=== PATIENT | male | born 1980 | race Caucasian/White ===

== ENCOUNTER 2017-02-10 09:31 | Emergency (ER) | payer MEDICAID ==
[~2017-02-10] VITALS: Ht 188 cm; Wt 73.6 kg
[2017-02-10 09:34] VITALS: BP 128/72
[2017-02-10] MEDS ORDERED: LIDOCAINE 1% 500 MG/50 ML VIAL INJ ONE (10:10)
--- NOTE | 2017-02-10 10:17 | NUR ---
PATIENT PRESENTS TO ED WITH BACK PAIN X 5 DAYS. PT ACCOMPANIED BY . PT DENIES N/V/D; SKIN IS PINK/WARM/DRY; AAOX4 WITH EVEN AND STEADY GAIT; LUNGS CLEAR BL; HR EVEN AND REGULAR; PT DENIES ANY FEVER, CP, SOB, OR COUGH AT THIS TIME; PATIENT STATES PAIN OF 7/10 AT THIS TIME; VSS; PATIENT POSITIONED FOR COMFORT; HOB ELEVATED; BEDRAILS UP X2; BED DOWN. ER MD MADE AWARE OF PT STATUS.
--- NOTE | 2017-02-10 10:58 | NUR ---
DR. RED PRESENT AT BEDSIDE FOR I AND D
--- NOTE | 2017-02-10 11:08 | NUR ---
I AND D COMPLETE, PT TOLERATED WELL. COVERED WITH DRESSING.
[2017-02-10 11:20] VITALS: BP 117/74
--- NOTE | 2017-02-10 11:20 | NUR ---
Patient discharged with v/s stable.ACCOMPANIED BY SPOUSE Written and verbal after care instructions given and explained. Patient verbalized understanding. Ambulatory with steady gait. All questions addressed prior to discharge. Advised to follow up with PMD FOR WOUND CHECKED WITHIN 2 DAYS.
== END 2017-02-10 11:20 | disposition home or self-care (01) ==
LOC: MED 09:31
DX: L02.212 Cutaneous abscess of back [any part, except buttock and flank] (principal)
CPT/HCPCS: 10060; 90471; 90715; 99283; J2001

== ENCOUNTER 2017-02-13 11:08 | Emergency (ER) | payer MEDICAID ==
[~2017-02-13] VITALS: Ht 190.5 cm; Wt 73.7 kg
[2017-02-13 11:49] VITALS: BP 133/67
--- NOTE | 2017-02-13 12:00 | NUR ---
PATIENT PRESENTS TO ED WITH A WOUND CHECK--ABSCESS DRAINED 3 DAYS AGO . PT STATES . DENIES N/V/D; SKIN IS PINK/WARM/DRY; AAOX4 WITH EVEN AND STEADY GAIT; LUNGS CLEAR BL; HR EVEN AND REGULAR; PT DENIES ANY FEVER, CP, SOB, OR COUGH AT THIS TIME; PATIENT STATES PAIN OF 0/10 AT THIS TIME; VSS; PATIENT POSITIONED FOR COMFORT; HOB ELEVATED; BEDRAILS UP X2; BED DOWN. ER MD MADE AWARE OF PT STATUS.
--- NOTE | 2017-02-13 12:17 | NUR ---
MD WILL BE REPACK WOUND ---SUPPLIES AT BEDSIDE, NOTIFIED
--- NOTE | 2017-02-13 12:45 | NUR ---
WOUND PACKED, PIG TAIL LEFT OUT----CLEAN GAUZE DRESSING APPLIED---PT TOLERATED PROCEDURE WITH MINIMAL DISCOMFORT STATED BY PT
[2017-02-13 12:55] VITALS: BP 114/71
== END 2017-02-13 12:55 | disposition home or self-care (01) ==
LOC: MED 11:08
DX: Z48.01 Encounter for change or removal of surgical wound dressing (principal)
CPT/HCPCS: 99283

== ENCOUNTER 2021-04-15 16:15 | Emergency (ER) | payer MEDICAID ==
[~2021-04-15] VITALS: Ht 190.5 cm; Wt 77.1 kg
[2021-04-15 16:19] VITALS: BP 125/68
--- NOTE | 2021-04-15 16:30 | NUR ---
[facility] [place] BEDSIDE EVALUATING PT
--- NOTE | 2021-04-15 16:32 | NUR ---
40 Y MALE WITH C/O LIPOMA ON RIGHT UPPER BACK X 2 WEEKS. PT STATED PAIN STARTED TO OCCUR X2 DAYS AGO THAT IS NON-RADIATING. PMH: LIPOMA RIGHT UPPER BACK SURGERY 4 YEARS AGO. [place]
[2021-04-15] MEDS ORDERED: LIDOCAINE MPF 1% 10 MG/ML VIAL INJ ONE (16:50)
[2021-04-15] MEDS ORDERED: IBUPROFEN 600 MG TAB PO ONE (16:50)
--- NOTE | 2021-04-15 17:10 | NUR ---
I&D SET UP PLACED INTO PT ROOM FOR PA.
[2021-04-15] MEDS ORDERED: IBUP-2213 PO (17:34)
[2021-04-15] MEDS ORDERED: CEPH-588 PO (17:34)
[2021-04-15 17:42] VITALS: BP 125/68
--- NOTE | 2021-04-15 17:42 | NUR ---
Patient discharged with v/s stable. Written and verbal after care instructions given and explained. Patient alert, oriented and verbalized understanding of instructions. Ambulatory with steady gait. All questions addressed prior to discharge. ID band removed. Patient advised to follow up with PMD. Rx of KEFLEX, MOTRIN given. Patient educated on indication of medication including possible reaction and side effects. Opportunity to ask questions provided and answered.
== END 2021-04-15 17:42 | disposition home or self-care (01) ==
LOC: MED 16:15
DX: L72.3 Sebaceous cyst (principal); R03.0 Elevated blood-pressure reading, without diagnosis of hypertension; Z79.899 Other long term (current) drug therapy; Z98.890 Other specified postprocedural states
CPT/HCPCS: 10060; 99283; J2001

== ENCOUNTER 2021-04-18 12:25 | Emergency (ER) | payer MEDICAID ==
[~2021-04-18] VITALS: Ht 190.5 cm; Wt 83.0 kg
[~2021-04-18 12:25] MED LIST: CEPH-588 PO; IBUP-2213 PO
[2021-04-18 12:35] VITALS: BP 122/75
--- NOTE | 2021-04-18 12:39 | NUR ---
Patient to wait in lobby.
[2021-04-18 13:48] VITALS: BP 122/75
--- NOTE | 2021-04-18 13:48 | NUR ---
Patient discharged with v/s stable. Written and verbal after care instructions given and explained. Patient verbalized understanding. Ambulatory with steady gait TO CAR WITH SPOUSE. All questions addressed prior to discharge. Advised to follow up with PMD.
== END 2021-04-18 13:48 | disposition home or self-care (01) ==
LOC: MED 12:25
DX: L02.212 Cutaneous abscess of back [any part, except buttock and flank] (principal); Z48.00 Encounter for change or removal of nonsurgical wound dressing
CPT/HCPCS: 99282

== ENCOUNTER 2021-04-22 17:04 | Emergency (ER) | payer MEDICAID ==
[~2021-04-22] VITALS: Ht 188 cm; Wt 84.4 kg
[2021-04-22 17:04] VITALS: BP 123/77
--- NOTE | 2021-04-22 17:13 | NUR ---
Patient to chair Diaz
--- NOTE | 2021-04-22 17:15 | NUR ---
BIB SELF FOR WOUND CHECK. S/P I&D ON UPPER BACK. 0/10 PAIN.
--- NOTE | 2021-04-22 17:36 | NUR ---
Patient being evaluated by DR SEVERINO at TRIAGE ROOM.
[2021-04-22] MEDS ORDERED: BACITRACIN OINT 500 UNITS/GM PKT TP ONE ×2 (17:38→17:40)
--- NOTE | 2021-04-22 17:52 | NUR ---
Patient discharged with v/s stable. Written and verbal after care instructions given and explained. Patient verbalized understanding. Ambulatory with steady gait. All questions addressed prior to discharge. Advised to follow up with PMD.
== END 2021-04-22 17:52 | disposition home or self-care (01) ==
LOC: MED 17:04
DX: L02.212 Cutaneous abscess of back [any part, except buttock and flank] (principal); Z79.899 Other long term (current) drug therapy; Z98.890 Other specified postprocedural states
CPT/HCPCS: 99282